=== PATIENT | male | born 1990 ===

== ENCOUNTER 2019-12-01 14:45 | Emergency (ER) | payer SELFPAY ==
[~2019-12-01] VITALS: Ht 182.9 cm; Wt 72.6 kg
[2019-12-01 15:03] VITALS: Ht 182.9 cm; Wt 72.6 kg
[2019-12-01 15:52] VITALS: BP 119/80
== END 2019-12-01 15:53 | disposition home or self-care (01) ==
LOC: ED 14:45
DX: R07.89 Other chest pain (principal); R50.9 Fever, unspecified; R05 Cough; Z20.828 Contact with and (suspected) exposure to other viral communicable diseases
CPT/HCPCS: U0003-CS